=== PATIENT | male | born 1990 | race Caucasian/White ===

== ENCOUNTER 2020-02-28 13:10 | Emergency (ER) | payer SELFPAY ==
[2020-02-28 13:15] VITALS: BP 115/61
--- NOTE | 2020-02-28 13:40 | ER Document Report ---
ED Medical Screen (RME) - General Chief Complaint: Laceration Stated Complaint: HAND LACERATION Time Seen by Provider: 02/28/20 13:37 Mode of Arrival: Ambulatory Information source: Patient Notes: 29-year-old male presented to ED with lacerations to the left thumb and fifth finger. He was using a ratchet strap when he released the pressure the strap snapped back and cut his hand. Patient is alert oriented respirations regular and unlabored speaking in full sentences. He does states he does not smoke he socially drinks does not use any drugs. He states he did get out of the 2 years ago so his tetanus should be up-to-date. Patient is alert oriented respirations regular and unlabored speaking in full sentences. I have greeted and performed a rapid initial assessment of this patient. A comprehensive ED assessment and evaluation of the patient, analysis of test results and completion of medical decision making process will be conducted by an additional ED providers. - Related Data Allergies/Adverse Reactions: No Known Allergies Allergy (Verified 02/28/20 13:33) Physical Exam - Vital signs Vitals: Temp Pulse Resp BP Pulse Ox 97.8 F 72 22 H 115/61 99 02/28/20 13:14 02/28/20 13:14 02/28/20 13:14 02/28/20 13:14 02/28/20 13:14 Course - Vital Signs Vital signs: Temp Pulse Resp BP Pulse Ox 97.8 F 72 22 H 115/61 99 02/28/20 13:14 02/28/20 13:14 02/28/20 13:14 02/28/20 13:14 02/28/20 13:14
--- NOTE | 2020-02-28 14:23 | RADIOLOGY REPORT (SQ) ---
EXAM DESCRIPTION: HAND LEFT 3 VIEWS IMAGES COMPLETED DATE/TIME: 02/28/2020 2:10 pm REASON FOR STUDY: Ratchet strap snapped cutting and injuring hand COMPARISON: None. EXAM PARAMETERS: NUMBER OF VIEWS: Three views. TECHNIQUE: AP, lateral and oblique radiographic images acquired of the left hand. LIMITATIONS: None. FINDINGS: MINERALIZATION: Normal. BONES: No acute fracture or dislocation. No worrisome bone lesions. JOINTS: No effusions. SOFT TISSUES: No soft tissue swelling. No foreign body. OTHER: No other significant finding. IMPRESSION: NEGATIVE STUDY OF THE LEFT HAND. NO RADIOGRAPHIC EVIDENCE OF ACUTE INJURY. TECHNICAL DOCUMENTATION: JOB ID: [id number] 2010 [employer]- All Rights Reserved Reading location - IP/workstation name: [email or web address]
== END 2020-02-28 18:00 | disposition left against medical advice (07) ==
LOC: ER 13:10
DX: S61.012A Laceration without foreign body of left thumb without damage to nail, initial encounter (principal); S61.217A Laceration without foreign body of left little finger without damage to nail, initial encounter; X58.XXXA Exposure to other specified factors, initial encounter
CPT/HCPCS: 99283